=== PATIENT | male | born 1960 | race American Indian/Alaskan Native ===

== ENCOUNTER 2018-06-18 07:32 | Emergency (ER) | payer SELFPAY ==
--- NOTE | 2018-06-18 08:01 | ED PDOC ---
Lower Extremity Pain/Injury Time Seen by Provider: 06/18/18 07:47 Chief Complaint (Nursing): Lower Extremity Problem/Injury Chief Complaint (Provider): foot problem History Per: Patient History/Exam Limitations: no limitations Onset/Duration Of Symptoms: Days Additional Complaint(s): Reg Mahmood is a 58 year old male, with no significant past medical history, who was brought to the emergency department by EMS complaining of foot infection. Patient is nondomicile, he is requesting clean clothes and shower. He denies any fever, chills or other medical complaints. PMD: None provided. Past Medical History Reviewed: Historical Data, Nursing Documentation, Vital Signs - Medical History PMH: No Chronic Diseases - Surgical History Surgical History: No Surg Hx - Family History Family History: States: Unknown Family Hx - Home Medications Home Medications: Ambulatory Orders Medication Instructions Recorded Clotrimazole 1% Cream [Lotrimin 1% 1 applic TOP DAILY #1 tube 06/18/18 CREAM] - Allergies Allergies/Adverse Reactions: Allergies Allergy/AdvReac Type Severity Reaction Status Date / Time No Known Allergies Allergy Verified 06/18/18 07:48 Review of Systems ROS Statement: Except As Marked, All Systems Reviewed And Found Negative Constitutional: Negative for: Fever, Chills Skin: Positive for: Other (right foot) Physical Exam - Reviewed Nursing Documentation Reviewed: Yes Vital Signs Reviewed: Yes - Physical Exam Appears: Positive for: No Acute Distress Head Exam: Positive for: ATRAUMATIC, NORMAL INSPECTION, NORMOCEPHALIC Skin: Positive for: Normal Color, Warm, Dry Eye Exam: Positive for: Normal appearance, EOMI, PERRL Neck: Positive for: Normal, Painless ROM Cardiovascular/Chest: Positive for: Regular Rate, Rhythm. Negative for: Murmur Respiratory: Positive for: Normal Breath Sounds. Negative for: Respiratory Distress Gastrointestinal/Abdominal: Positive for: Normal Exam, Soft. Negative for: Tenderness, Guarding, Rebound Back: Positive for: Normal Inspection. Negative for: L CVA Tenderness, R CVA Tenderness, Vertebral Tenderness Extremity: Positive for: Normal ROM (upper and lower extremities), Other (Foot excoriated from wet socks. No erythema or drainage. Poor hygiene ). Negative for: Deformity Neurologic/Psych: Positive for: Alert, Oriented. Negative for: Motor/Sensory Deficits Medical Decision Making Medical Decision Making: Time: 07:47 Initial Plan: --Reevaluation ----- Scribe Attestation: Documented by Sarkis Sales, acting as a scribe for Farhat Dow MD. Provider Scribe Attestation: All medical record entries made by the Scribe were at my direction and personally dictated by me. I have reviewed the chart and agree that the record accurately reflects my personal performance of the history, physical exam, medical decision making, and the department course for this patient. I have also personally directed, reviewed, and agree with the discharge instructions and disposition. Disposition - Clinical Impression Clinical Impression: Tinea pedis - Patient ED Disposition Is Patient to be Admitted: No Counseled Patient/Family Regarding: Diagnosis, Need For Followup, Rx Given - Disposition Referrals: FAMILY PROVIDER,NO [Primary Care Provider] - Podiatry Clinic [Outside] Disposition: Routine/Home Disposition Time: 12:16 Condition: FAIR Prescriptions: Clotrimazole 1% Cream [Lotrimin 1% CREAM] 1 applic TOP DAILY #1 tube Instructions: Athlete's [employer] Forms: [employer] ([place])
[2018-06-18 08:38] VITALS: BP 113/30; PULSE 93; RESP 18; TEMP 98.7; O2SAT 100
== END 2018-06-18 12:50 | disposition home or self-care (01) ==
LOC: SUPCPDRO 07:32 → H.ER 07:32
DX: B35.3 Tinea pedis (principal)